=== PATIENT | male | born 1975 | race Hispanic/Latino ===

== ENCOUNTER 2018-06-19 06:31 | Day surgery (SDC) | payer MEDICAID ==
[2018-06-11 14:07] VITALS: BMI 27.5
[2018-06-19] MEDS ORDERED: Lactated Ringer's 1,000 ML IV ONE ×3 (07:10→13:30)
[2018-06-19] MEDS ORDERED: MethylPREDNISolone Depo 40 mg/ml Inj ONE (07:13)
[2018-06-19] MEDS ORDERED: Bupivacaine HCl 0.5% PF (30 ml) Inj ONE (07:13)
[2018-06-19] MEDS ORDERED: GELATIN SPONGE,ABSORB/PORCINE 1 EACH SPONGE TP ONE ×2 (07:14→09:30)
[2018-06-19] MEDS ORDERED: Absorbable Gelatin Sponge Size 12-7 ONE (07:14)
[2018-06-19] MEDS ORDERED: Thrombin Topical 5,000 Int Units Spray Kit ONE (07:14)
[2018-06-19] MEDS ORDERED: Lidocaine 2% MPF (5 ml) Inj ONE (07:15)
[2018-06-19] MEDS ORDERED: Ketamine 50 mg/ml Inj (10 ml) ONE (07:21)
[2018-06-19] MEDS ORDERED: Rocuronium 10 mg/ml (5 ml) ONE (07:24)
[2018-06-19] MEDS ORDERED: Propofol 10 mg/ml Inj (20 ML) ONE ×2 (07:24→08:55)
[2018-06-19] MEDS ORDERED: Succinylcholine 200 mg/10 ml Inj IV ONE (07:24)
[2018-06-19 07:44] VITALS: RESP 18
[2018-06-19 08:25] LABS: BASO # 0.1 K/uL (0.0-0.2); BASO % 1.1 % (0.0-2.0); EOS # 0.7 K/uL (0.0-0.7); EOS % 10.7 % (0.0-4.0); HEMOGLOBIN 13.7 g/dL (12.0-18.0); LYMPH # 2.8 K/uL (1.0-4.3); LYMPH % 40.6 % (20.0-40.0); MEAN CELL VOLUME 90.3 fl (80.0-94.0); MEAN CORPUSCULAR HEMOGLOBIN 32.8 pg (27.0-31.0); MEAN CORPUSCULAR HGB CONC 36.4 g/dL (33.0-37.0); MEAN PLATELET VOLUME 7.9 fl (7.2-11.7); MONO # 0.7 K/uL (0.0-0.8); MONO % 9.4 % (0.0-10.0); NEUT # 2.7 K/uL (1.8-7.0); NEUT % 38.2 % (50.0-75.0); NRBC % 0.1 % (0.0-0.0); RBC 4.18 Mil/uL (4.40-5.90); RED CELL DISTRIBUTION WIDTH 12.4 % (11.5-14.5); WHITE BLOOD COUNT 6.9 K/uL (4.8-10.8)
[2018-06-19] MEDS ORDERED: Vancomycin 1 g Inj IVPB ONE (09:15)
[2018-06-19] MEDS ORDERED: Dexamethasone 4 mg/1 ml ONE (09:17)
[2018-06-19] MEDS ORDERED: Thrombin Topical 5,000 Int Units Spray Kit TOP ONE ×2 (09:30)
[2018-06-19] MEDS ORDERED: Benzoin Compund Tincture 30 ML TP ONE (12:00)
[2018-06-19] MEDS ORDERED: Bupivacaine 0.5% 50 ML IJ ONE (12:00)
[2018-06-19] MEDS ORDERED: MethylPREDNISolone Depo 40 mg/ml Inj IM ONE (12:00)
[2018-06-19] MEDS ORDERED: Liquid Adhesive TOP ONE ×2 (12:01→12:30)
[2018-06-19] MEDS ORDERED: Lactated Ringer's 1,000 ML IV SCH (12:45)
[2018-06-19] MEDS ORDERED: HYDROmorphone 1 mg/ml ISec ONE ×4 (12:48→13:42)
[2018-06-19] MEDS: HYDROmorphone 0.5 mg/0.5 ml ISec IVP PRN ×4 (12:50→13:40)
--- NOTE | 2018-06-19 12:55 | RAD ---
Date of service: 06/19/2018 PROCEDURE: Fluoroscopy in excess of 1 hour. HISTORY: ACDF COMPARISON: None TECHNIQUE: Standard protocol for this study/examination. FINDINGS: Total fluoroscopic time (continuous mode) utilized during the procedure 13.2 (seconds). Total exam DLP: 0.7 80 (mGy) IMPRESSION: Submitted images from the current procedure: 2.0
[2018-06-19] MEDS ORDERED: Oxycodone/Acetaminophen 5/325 mg Tab PO PRN (13:18)
[2018-06-19 14:48] VITALS: O2SAT 94
[2018-06-19 14:51] VITALS: BP 124/74; PULSE 6; TEMP 97.9
== END 2018-06-19 15:25 | disposition home or self-care (01) ==
LOC: H.OPSURG 06:31
PROVIDERS: ATTEND Orthopaedic Surgery Orthopaedic Surgery of the Spine
DX: M54.12 Radiculopathy, cervical region (principal); M43.02 Spondylolysis, cervical region; M50.221 Other cervical disc displacement at C4-C5 level; M50.222 Other cervical disc displacement at C5-C6 level; M48.02 Spinal stenosis, cervical region
CPT/HCPCS: 22856; 22858; 36415; 85025; 86850; 86900; 88304; C1713; J0131; J0330; J0690; J1030; J1100; J1170; J2001; J2704; J3010; J7030; J7120